=== PATIENT | male | born 1980 | race African-American/Black ===

== ENCOUNTER 2021-03-08 10:01 | Emergency (ER) | payer BC, OTHER ==
[~2021-03-08] VITALS: Ht 170 cm; Wt 81.8 kg
[2021-03-08 10:38] LABS: BILIRUBIN,URINE NEGATIVE (NEGATIVE); CLARITY,URINE CLEAR; COLOR,URINE YELLOW; GLUCOSE, URINE (UA) NEGATIVE (NEGATIVE); KETONES,URINE NEGATIVE (NEGATIVE); LEUKOCYTE ESTERASE ,URINE NEGATIVE (NEGATIVE); NITRITE,URINE NEGATIVE (NEGATIVE); PROTEIN,URINE 1+ (NEGATIVE)
[2021-03-08] MEDS ORDERED: ONDANSETRON 4 MG (ZOFRAN) ORAL DISSOLVE TAB SL STA (10:53)
[2021-03-08 10:54] LABS: AMORPHOUS SEDIMENT,UR FEW AMOR URATES /LPF; BACTERIA,URINE NEGATIVE /HPF; RBC,URINE 0-2 /HPF; SQUAMOUS EPITHELIAL CELL,UR 0-2 /HPF
[2021-03-08] MEDS ORDERED: LIDOCAINE 2% VISCOUS 15 ML UDC PO ONE (11:00)
[2021-03-08] MEDS ORDERED: ANTACID SUSP 30 ML UDC (MYLANTA) PO ONE (11:00)
[2021-03-08 11:07] LABS: BASOPHILS % (AUTO) 0 % (0-10); EOSINOPHILS # (AUTO) 0.2 10^3/uL (0.0-0.3); EOSINOPHILS % (AUTO) 3 % (0-10); HEMATOCRIT 50 % (40-54); HEMOGLOBIN 16.7 g/dL (13.3-17.7); LYMPHOCYTES # (AUTO) 1.5 10^3/uL (1.0-4.0); LYMPHOCYTES % (AUTO) 26 % (12-44); MEAN CORPUSCULAR HEMOGLOBIN 30 pg (25-34); MEAN CORPUSCULAR HGB CONC 33 g/dL (32-36); MEAN CORPUSCULAR VOLUME 91 fL (80-99); MEAN PLATELET VOLUME 11.1 fL (9.0-12.2); MONOCYTES # (AUTO) 0.8 10^3/uL (0.0-1.0); MONOCYTES % (AUTO) 13 % (0-12); NEUTROPHILS # (AUTO) 3.5 10^3/uL (1.8-7.8); NEUTROPHILS % (AUTO) 58 % (42-75); PLATELET COUNT 184 10^3/uL (130-400); WHITE BLOOD COUNT 5.9 10^3/uL (4.3-11.0)
[2021-03-08 11:09] LABS: ALBUMIN 4.4 GM/DL (3.2-4.5); CHLORIDE 108 MMOL/L (98-107); POTASSIUM 3.6 MMOL/L (3.6-5.0); SODIUM 141 MMOL/L (135-145)
[2021-03-08 11:10] LABS: CALCIUM 8.8 MG/DL (8.5-10.1)
[2021-03-08 11:12] LABS: GLUCOSE 98 MG/DL (70-105)
[2021-03-08 11:13] LABS: BILIRUBIN,TOTAL 0.5 MG/DL (0.1-1.0); CARBON DIOXIDE 19 MMOL/L (21-32)
[2021-03-08 11:15] LABS: ALKALINE PHOSPHATASE 62 U/L (40-136); CREATININE SERUM 1.21 MG/DL (0.60-1.30); GFR ESTIMATED 81
[2021-03-08 11:16] LABS: BUN/CREATININE RATIO 8
[2021-03-08 11:18] LABS: ALANINE AMINOTRANSFERASE 26 U/L (0-55)
[2021-03-08 11:19] LABS: LIPASE 16 U/L (8-78)
[2021-03-08] MEDS ORDERED: LORazepam 0.5 MG (ATIVAN) TABLET PO ONE (12:15)
[2021-03-08] MEDS ORDERED: ONDANSETRON 4 MG/2 ML (SDV) Z0FRAN IVP ONE (12:15)
[2021-03-08] MEDS ORDERED: FAMOTIDINE 20MG/2ML IV (PEPCID) IVP ONE (12:15)
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
[2021-03-08] MEDS ORDERED: OMEP20TA7 PO (12:17)
[2021-03-08] MEDS ORDERED: ONDA4TAB11 SL (12:17)
[2021-03-08] MEDS ORDERED: HYOS0.1283 SL (12:17)
[2021-03-08] MEDS ORDERED: LORA-404 PO (12:19)
[2021-03-08 12:45] VITALS: BP 153/103
== END 2021-03-08 12:44 | disposition home or self-care (01) ==
LOC: ER 10:04
DX: R10.84 Generalized abdominal pain (principal); R19.7 Diarrhea, unspecified; R11.0 Nausea; F10.20 Alcohol dependence, uncomplicated; I10 Essential (primary) hypertension
CPT/HCPCS: 80053; 81000; 83690; 85025; 99284; G0480; 36415; 80320; 96374; 96375

== ENCOUNTER 2021-10-09 11:57 | Emergency (ER) | payer SELFPAY ==
[~2021-10-09] VITALS: Ht 170 cm; Wt 73.0 kg
[~2021-10-09 11:57] MED LIST: HYOS0.1283 SL; LORA-404 PO; OMEP20TA7 PO; ONDA4TAB11 SL
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
[2021-10-09 13:32] VITALS: BP 163/101
== END 2021-10-09 13:31 | disposition home or self-care (01) ==
LOC: EDUNIT# 11:57 → ER 11:58
DX: F41.9 Anxiety disorder, unspecified (principal); F15.20 Other stimulant dependence, uncomplicated
CPT/HCPCS: 99281

== ENCOUNTER 2023-01-11 16:03 | Emergency (ER) | payer SELFPAY ==
[~2023-01-11] VITALS: Ht 167 cm; Wt 74.0 kg
[~2023-01-11 16:03] MED LIST changes: +OMEP20TA56 PO; -OMEP20TA7 PO
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
[2023-01-11 16:36] VITALS: BP 162/83
[2023-01-11 16:39] LABS: BILIRUBIN,URINE NEGATIVE (NEGATIVE); CLARITY,URINE CLEAR; COLOR,URINE DARK YELLOW; GLUCOSE, URINE (UA) NEGATIVE (NEGATIVE); KETONES,URINE TRACE (NEGATIVE); LEUKOCYTE ESTERASE ,URINE NEGATIVE (NEGATIVE); NITRITE,URINE NEGATIVE (NEGATIVE); PH,URINE 5.5 (5-9); PROTEIN,URINE 1+ (NEGATIVE)
[2023-01-11 16:53] LABS: AMORPHOUS SEDIMENT,UR RARE AMOR URATES /LPF; BACTERIA,URINE TRACE /HPF; HYALINE CASTS, URINE 25-50 /LPF; SQUAMOUS EPITHELIAL CELL,UR RARE /HPF; WBC,URINE 0-2 /HPF
[2023-01-11 16:56] LABS: AMPHETAMINE SCREEN, URINE POSITIVE (NEGATIVE); BARBITURATE SCREEN URINE NEGATIVE (NEGATIVE); BENZODIAZEPINES SCREEN URINE NEGATIVE (NEGATIVE); CANNABINOID SCREEN, URINE POSITIVE (NEGATIVE); COCAINE SCREEN URINE NEGATIVE (NEGATIVE); METHADONE STAT NEGATIVE (NEGATIVE); OPIATE SCREEN URINE NEGATIVE (NEGATIVE); OXYCODONE STAT NEGATIVE (NEGATIVE); PROPOXYPHENE STAT NEGATIVE (NEGATIVE); TRICYCLIC ANTIDEPRESSANTS SCRE NEGATIVE (NEGATIVE)
== END 2023-01-11 16:38 | disposition home or self-care (01) ==
LOC: EDUNIT# 16:03 → ER 16:04
DX: F15.10 Other stimulant abuse, uncomplicated (principal); F12.10 Cannabis abuse, uncomplicated; V89.2XXA Person injured in unspecified motor-vehicle accident, traffic, initial encounter; Y92.410 Unspecified street and highway as the place of occurrence of the external cause
CPT/HCPCS: 80306; 81000; 99283

== ENCOUNTER 2023-01-20 08:44 | Emergency (ER) | payer SELFPAY ==
[~2023-01-20] VITALS: Ht 170 cm; Wt 79.0 kg
[2023-01-20 08:50] VITALS: BP 186/135
--- NOTE | 2023-01-20 09:28 | ED Headache ---
General Chief Complaint: Head/Cervical Problems Stated Complaint: HEADACHES Nursing Triage Note: AMBULATED TO ROOM 06 WITH COMPLAINTS OF A HEADACHE X1 WEEK. RECENTLY STARTED TAKING HIS BP MED AGAIN. Source: patient Exam Limitations: no limitations History of Present Illness Date Seen by Provider: Jan 20, 2023 Time Seen by Provider: 09:05 Initial Comments Patient is a 42-year-old male who presents to the emergency room with a headache for 1 week. Patient states the headache has been constant, seems to be worse when he smokes cigarettes. Otherwise not positional. He denies any vision changes, speech difficulty. No chest pain or shortness of breath. No nausea, vomiting. No issues with bowel or bladder. He states that he just started taking his amlodipine 10 mg tablets 3 days ago. He had quit taking them due to homelessness. He states that he does smoke cigarettes daily. He uses marijuana as well as methamphetamine. He drinks alcohol most days. Of note the patient's blood pressure is quite high, 180/122. I spoke with the patient at length about evaluation of hypertension and headache. I offered pain medication for his headache which he declined. When I started to discuss with him the work-up and evaluation of hypertension and headache he declined all studies. He states that he would rather follow-up as an outpatient. Patient advised of the risks and benefits of staying versus leaving. He elects to leave AGAINST MEDICAL ADVICE. Timing/Duration: 1 week Severity/Quality: moderate, throbbing Location: occipital Prior Headaches/Recent Trauma: occasional headaches Associated Symptoms: denies symptoms Allergies and Home Medications Allergies Coded Allergies: No Known Drug Allergies (Unverified , 03/08/21) Patient Home Medication List Home Medication List Reviewed: Yes Hyoscyamine Sulfate (Levsin-Sl) 0.125 Mg Tab.subl, 1-2 TAB SL Q4H PRN for CRAMPS Prescribed by: LEOBARDO TABARES on 03/08/21 1217 Lorazepam (Ativan) 0.5 Mg Tablet, 0.5 MG PO TID PRN for ANXIETY Prescribed by: LEOBARDO TABARES on 03/08/21 1220 Omeprazole (Omeprazole) 20 Mg Tablet.dr, 20 MG PO BID Prescribed by: LEOBARDO TABARES on 03/08/21 1217 Ondansetron (Ondansetron Odt) 4 Mg Tab.rapdis, 4 MG SL Q4H PRN for NAUSEA/VOMITING Prescribed by: LEOBARDO TABARES on 03/08/21 1217 Review of Systems Review of Systems Constitutional: see HPI Eyes: No Symptoms Reported Ears, Nose, Mouth, Throat: no symptoms reported Respiratory: no symptoms reported Cardiovascular: no symptoms reported Gastrointestinal: no symptoms reported Genitourinary: no symptoms reported Musculoskeletal: no symptoms reported Skin: no symptoms reported Psychiatric/Neurological: Emotional Problems (stress related to homelessness and drug use), Headache; Denies Numbness, Denies Weakness Past [id number] Hx Patient Social History Tobacco Use?: Yes Smoking Status: Current Everyday Smoker Substance use?: Yes Substance type: Marijuana Alcohol Use?: Yes Alcohol Frequency: Couple times a week Past Medical History Surgery/Hospitalization HX: IS SUPPOSE TO BE ON B/P MEDS BUT HAS NOT TAKEN. Surgeries: No Respiratory: No Cardiac: Yes Hypertension Neurological: No Reproductive Disorders: No Genitourinary: No Gastrointestinal: No Musculoskeletal: No Endocrine: No HEENT: No Cancer: No Psychosocial: No Physical Exam Vital Signs Vital Signs - First Documented 01/20/23 08:50 Temp 36.3 Pulse 102 Resp 16 B/P (MAP) 186/135 (152) Pulse Ox 98 O2 Delivery Room Air Capillary Refill : Less Than 3 Seconds Height, Weight, BMI Height: '" Weight: lbs. oz. kg; 27.00 BMI Method: General Appearance: WD/WN, no apparent distress HEENT: PERRL/EOMI, pharynx normal Neck: full range of motion Cardiovascular: regular rate, rhythm Respiratory: lungs clear, normal breath sounds, no respiratory distress, no ac cessory muscle use Extremities: normal range of motion, normal inspection, no pedal edema, normal capillary refill Psychiatric: alert, oriented x 3 Crainal Nerves: normal hearing, normal speech, PERRL; No abnormal speech, No facial asymmetry, No facial paresthesias, No tongue deviation to R, No tongue deviation to L Coordination/Gait: normal gait Motor/Sensory: no motor deficit, no sensory deficit, no pronator drift Skin: normal color, warm/dry Progress/Results/Core Measures Results/Orders Vital Signs/I&O 01/20/23 08:50 Temp 36.3 Pulse 102 Resp 16 B/P (MAP) 186/135 (152) Pulse Ox 98 O2 Delivery Room Air Blood Pressure Mean: 152 Progress Progress Note : Time: 09:21 Progress Note Patient seen and evaluated by me. Evaluation today includes physical exam. Pertinent physical exam findings include well-developed well-nourished male no acute distress. Normal HEENT exam. Heart is regular, lungs are clear. No focal neurologic deficits. Differential diagnosis based on history and physical exam, hypertensive urgency, tension headache, subarachnoid hemorrhage,renal failure. Long discussion with the patient regarding his blood pressure in the 180s/190s over 120s. Patient was advised that due to his hypertension and headache laboratory studies should be obtained in order to rule out endorgan dysfunction. He is neurologically stable, no deficits making subarachnoid hemorrhage/intracranial hemorrhage less likely. He states that he recently started taking his amlodipine over the last 3 days but also admits to methamphetamine use, daily alcohol, marijuana and smoking history. These issues are likely driving up his blood pressure as it is the stress of homelessness. Patient states that he does not want any medicines for his headache he just wanted to "make sure he was okay". I strongly advised that he stay for labs and advised him of the risks of leaving without further evaluation and treatment to include stroke, heart attack, renal failure, . He verbalized understanding. He again states that he does not want any labs done. Patient is provided an AMA form. Departure Impression Primary Impression: Hypertensive urgency Additional Impression: Headache Qualified Codes: R51.9 - Headache, unspecified Disposition: 07 AGAINST MEDICAL ADVICE Condition: Against Medical Advice Departure-Patient Inst. Referrals: NO,LOCAL PHYSICIAN (PCP) Primary Care Physician OFELIA ANGELO MD Jan 20, 2023 09:28
== END 2023-01-20 09:20 | disposition left against medical advice (07) ==
LOC: EDUNIT# 08:44 → ER 08:46
DX: I16.0 Hypertensive urgency (principal); F17.210 Nicotine dependence, cigarettes, uncomplicated
CPT/HCPCS: 99281